=== PATIENT | male | born 1970 | race African-American/Black ===

== ENCOUNTER 2016-10-17 21:10 | Emergency (ER) | payer MEDICAID ==
[~2016-10-17] VITALS: Ht 177.8 cm; Wt 73.0 kg
[2016-10-17 21:46] VITALS: BP 125/79
== END 2016-10-18 | disposition left against medical advice (07) ==
LOC: ER 21:10
DX: S61.551A Open bite of right wrist, initial encounter (principal); W53.21XA Bitten by squirrel, initial encounter; Y93.9 Activity, unspecified; Y92.9 Unspecified place or not applicable; Z53.21 Procedure and treatment not carried out due to patient leaving prior to being seen by health care provider

== ENCOUNTER 2017-08-11 17:43 | Inpatient (IN) | payer MEDICAID ==
[~2017-08-11] VITALS: Ht 180.3 cm; Wt 74.4 kg
[2017-08-11] MEDS ORDERED: GABA-531 PO (17:55)
[2017-08-11] MEDS ORDERED: SODIUM CHLORIDE 0.9% 1000ML BAG (SEPSIS BOLUS) IV ONE (18:15)
[2017-08-11 18:50] LABS: HEMATOCRIT. 49.1 % (42.0-52.0); HEMOGLOBIN. 16.5 g/dL (14.0-18.0); MEAN CORPUSCULAR HEMOGLOBIN 30.3 pg (28.0-32.0); MEAN CORPUSCULAR VOLUME 90.4 fL (80.0-94.0); MEAN PLATELET VOLUME 8.5 fl (7.4-10.4); PLATELET 215 x1000/uL (130-400); RED BLOOD CELL COUNT 5.43 mill/uL (4.7-6.1); RED CELL DISTRIBUTION WIDTH 13.2 % (11.6-14.6)
[2017-08-11 18:54] LABS: CHLORIDE 104 mEq/L (98-107)
[2017-08-11 18:57] LABS: INR 1.1; PARTIAL THROMBOPLASTIN TIME 27.8 sec (23.4-31.0); PROTHROMBIN TIME 11.4 sec (9.4-11.6)
[2017-08-11 18:59] LABS: ETHANOL BLOOD < 10 mg/dL
[2017-08-11] MEDS ORDERED: VANCOMYCIN 1 G PREMIX 200 ML IV SCH (19:00)
[2017-08-11] MEDS ORDERED: ACETAMINOPHEN 650MG SUPP PR ONE (19:00)
[2017-08-11] MEDS ORDERED: PIPERACILLIN/TAZ 3.375G PREMIX 50 ML IV ONE (19:00)
[2017-08-11 19:36] LABS: PLATELET ESTIMATE NORMAL
[2017-08-11] MEDS ORDERED: ASPIRIN 300MG SUPP PR ONE (20:15)
[2017-08-12] VITALS (23 sets, daily range): BP systolic 106–149; BP diastolic 56–93
[2017-08-12] MEDS ORDERED: IPRATROPIUM/ALBUTEROL 0.5-3(2.5)MG/3ML NEB HHN PRN (02:30)
[2017-08-12] MEDS: IPRATROPIUM/ALBUTEROL 0.5-3(2.5)MG/3ML NEB HHN SCH ×5 (04:09→19:53)
[2017-08-12] MEDS: BACLOFEN 10MG TABLET PO SCH ×2 (06:10→14:00)
[2017-08-12] MEDS: GABAPENTIN 300MG CAPSULE PO SCH ×3 (09:00→17:00)
[2017-08-12] MEDS ORDERED: SODIUM CHLORIDE 0.9% 1,000 ML IV SCH (12:30)
[2017-08-12] MEDS: SODIUM CHLORIDE 0.9% 1,000 ML IV SCH ×2 (12:33→15:29)
[2017-08-12] MEDS ORDERED: VECURONIUM BROMIDE 10 MG/VIAL IV ONE (13:23)
[2017-08-12] MEDS ORDERED: ETOMIDATE 2MG/ML 10ML VIAL IV ONE (13:23)
[2017-08-12] MEDS ORDERED: NORMAL SALINE 0.9% 10 ML SYR ONE (13:23)
[2017-08-12] MEDS: PIPERACILLIN/TAZ 3.375G PREMIX 50 ML IV SCH ×2 (15:29→21:23)
[2017-08-12] MEDS ORDERED: ACETAMINOPHEN 650MG SUPP PR NR (16:15)
[2017-08-12 16:43] LABS: BG BASE EXCESS 1.2 mmol/L (-2.0-2.0); BG CARBOXYHEMOGLOBIN 0.9 % (0.5-1.5); BG DEOXYHEMOGLOBIN 1.4 % (0.0-5.0); BG FRACTION INSPIRED OXYGEN 100; BG HCO3 ACT 24.5 mmol/L (22.0-26.0); BG METHEMOGLOBIN 0.5 % (0.0-1.5); BG OXYGEN SATURATION 98.6 % (92.0-98.5); BG OXYHEMOGLOBIN 97.2 % (94.0-97.0); BG PCO2 35.2 mmHg (35.0-45.0); BG PH 7.461 (7.350-7.450); BG PO2 108.1 mmHg (75.0-100.0); BG SAMPLE SITE RIGHT RADIAL; BG TOTAL HEMOGLOBIN 15.6 g/dL (12.0-18.0); BG VENT MODE MASK - NRB
[2017-08-12] MEDS: VANCOMYCIN 1 G PREMIX 200 ML IV SCH ×2 (18:42→23:17)
[2017-08-12 18:54] LABS: BG BASE EXCESS -0.7 mmol/L (-2.0-2.0); BG CARBOXYHEMOGLOBIN 0.9 % (0.5-1.5); BG DEOXYHEMOGLOBIN 4.1 % (0.0-5.0); BG FRACTION INSPIRED OXYGEN 60; BG HCO3 ACT 22.9 mmol/L (22.0-26.0); BG METHEMOGLOBIN 0.4 % (0.0-1.5); BG OXYGEN SATURATION 95.8 % (92.0-98.5); BG OXYHEMOGLOBIN 94.6 % (94.0-97.0); BG PCO2 34.9 mmHg (35.0-45.0); BG PH 7.435 (7.350-7.450); BG PO2 73.1 mmHg (75.0-100.0); BG SAMPLE SITE RIGHT RADIAL; BG TIDAL VOLUME(mL) 600 mL; BG TOTAL HEMOGLOBIN 15.7 g/dL (12.0-18.0); BG VENT MODE VENT - A/C; BG VENT RATE 16 set
[2017-08-12 22:15] LABS: CLARITY URINE TURBID (CLEAR); COLOR URINE YELLOW (YELLOW); KETONES URINE TRACE (NEGATIVE); LEUKOCYTE ESTERASE URINE NEGATIVE (NEGATIVE); NITRITE URINE NEGATIVE (NEGATIVE); OCCULT BLOOD URINE 2+ (NEGATIVE); PROTEIN URINE 1+ (NEGATIVE); SPECIFIC GRAVITY URINE 1.018 (1.005-1.030); UROBILINOGEN URINE 0.2 E.U./dL (0.2-1.0)
[2017-08-12 22:36] LABS: *AMPHETAMINES SCREEN URINE NEGATIVE (NEGATIVE); *BARBITURATES SCREEN URINE NEGATIVE (NEGATIVE); *BENZODIAZEPINES SCREEN URINE NEGATIVE (NEGATIVE); *COCAINE SCREEN URINE NEGATIVE (NEGATIVE)
[2017-08-12 22:37] LABS: CANNABINOID URINE SCREEN NEGATIVE (NEGATIVE); METHADONE URINE SCREEN NEGATIVE (NEGATIVE); OPIATES URINE SCREEN NEGATIVE (NEGATIVE); PHENCYCLIDINE URINE SCREEN NEGATIVE (NEGATIVE)
[2017-08-13] VITALS (92 sets, daily range): BP systolic 90–137; BP diastolic 43–94
[2017-08-13] MEDS: IPRATROPIUM/ALBUTEROL 0.5-3(2.5)MG/3ML NEB HHN SCH ×6 (00:20→20:11)
[2017-08-13] MEDS: PIPERACILLIN/TAZ 3.375G PREMIX 50 ML IV SCH ×4 (02:53→20:34)
[2017-08-13] MEDS: ACETAMINOPHEN 650MG/20.3ML UDC PO PRN ×2 (02:58→16:48)
[2017-08-13 05:58] LABS: BASOPHILS % 0.1 % (0.0-2.0); HEMATOCRIT. 43.1 % (42.0-52.0); HEMOGLOBIN. 14.5 g/dL (14.0-18.0); LYMPHOCYTES % 11.3 % (20.0-50.0); MEAN CORPUSCULAR HEMOGLOBIN 30.1 pg (28.0-32.0); MEAN CORPUSCULAR VOLUME 89.3 fL (80.0-94.0); MEAN PLATELET VOLUME 8.6 fl (7.4-10.4); NEUTROPHILS % 83.6 % (40.0-76.0); PLATELET 203 x1000/uL (130-400); RED BLOOD CELL COUNT 4.83 mill/uL (4.7-6.1)
[2017-08-13 06:12] LABS: CHLORIDE 104 mEq/L (98-107)
[2017-08-13] MEDS: VANCOMYCIN 1 G PREMIX 200 ML IV SCH ×3 (06:30→22:51)
[2017-08-13 08:39] LABS: BG BASE EXCESS 3.3 mmol/L (-2.0-2.0); BG CARBOXYHEMOGLOBIN 0.3 % (0.5-1.5); BG DEOXYHEMOGLOBIN 1.1 % (0.0-5.0); BG FRACTION INSPIRED OXYGEN 50; BG METHEMOGLOBIN 0.3 % (0.0-1.5); BG OXYGEN SATURATION 98.9 % (92.0-98.5); BG OXYHEMOGLOBIN 98.3 % (94.0-97.0); BG PCO2 33.8 mmHg (35.0-45.0); BG PH 7.504 (7.350-7.450); BG PO2 151.2 mmHg (75.0-100.0); BG SAMPLE SITE RIGHT RADIAL; BG TIDAL VOLUME(mL) 600 mL; BG TOTAL HEMOGLOBIN 14.8 g/dL (12.0-18.0); BG VENT MODE VENT - A/C; BG VENT RATE 16 set
[2017-08-13] MEDS ORDERED: MORPHINE SULFATE 4 MG/ML CPJ (NOT FOR IM USE) IV PRN (09:00)
[2017-08-13] MEDS ORDERED: LORAZEPAM 2MG/ML CPJ IV PRN (09:15)
[2017-08-13] MEDS: PROPOFOL 10MG/ML 100ML 100 ML IV PRN ×2 (09:42→22:51)
[2017-08-13] MEDS: PANTOPRAZOLE SODIUM 40 MG/VIAL IV SCH (09:43)
[2017-08-13] MEDS: GABAPENTIN 300MG CAPSULE PO SCH ×3 (09:43→16:48)
[2017-08-13] MEDS: ENOXAPARIN 40MG/0.4ML SYR SUBCUT SCH (09:43)
[2017-08-13] MEDS: POTASSIUM CHLORIDE 20MEQ/PACKET PO SCH ×3 (09:44→16:47)
[2017-08-13] MEDS: BACLOFEN 10MG TABLET PO SCH ×2 (12:49→22:51)
[2017-08-13] MEDS: SODIUM CHLORIDE 0.9% 1,000 ML IV SCH ×2 (13:01→22:52)
[2017-08-13] MEDS: HYDROCORTISONE ACETATE 25MG SUPP PR SCH (20:34)
[2017-08-14] VITALS (46 sets, daily range): BP systolic 95–172; BP diastolic 54–106
[2017-08-14] MEDS: IPRATROPIUM/ALBUTEROL 0.5-3(2.5)MG/3ML NEB HHN SCH ×6 (00:15→20:06)
[2017-08-14] MEDS: PIPERACILLIN/TAZ 3.375G PREMIX 50 ML IV SCH ×4 (04:09→22:06)
[2017-08-14] MEDS: ACETAMINOPHEN 650MG/20.3ML UDC PO PRN ×3 (04:13→19:47)
[2017-08-14] MEDS: BACLOFEN 10MG TABLET PO SCH ×3 (05:19→22:06)
[2017-08-14 05:31] LABS: HEMATOCRIT. 41.1 % (42.0-52.0); MEAN CORPUSCULAR HEMOGLOBIN 30.7 pg (28.0-32.0); MEAN CORPUSCULAR VOLUME 90.2 fL (80.0-94.0); MEAN PLATELET VOLUME 9.4 fl (7.4-10.4); PLATELET 184 x1000/uL (130-400); RED BLOOD CELL COUNT 4.55 mill/uL (4.7-6.1); RED CELL DISTRIBUTION WIDTH 13.2 % (11.6-14.6)
[2017-08-14 05:45] LABS: CHLORIDE 107 mEq/L (98-107)
[2017-08-14] MEDS: VANCOMYCIN 1 G PREMIX 200 ML IV SCH ×3 (06:50→23:47)
[2017-08-14] MEDS: PANTOPRAZOLE SODIUM 40 MG/VIAL IV SCH (08:21)
[2017-08-14] MEDS: ENOXAPARIN 40MG/0.4ML SYR SUBCUT SCH (08:22)
[2017-08-14] MEDS: HYDROCORTISONE ACETATE 25MG SUPP PR SCH ×2 (08:22→22:06)
[2017-08-14] MEDS: GABAPENTIN 300MG CAPSULE PO SCH ×3 (08:22→16:50)
[2017-08-14 08:44] LABS: BG BASE EXCESS 3.8 mmol/L (-2.0-2.0); BG CARBOXYHEMOGLOBIN 0.1 % (0.5-1.5); BG FRACTION INSPIRED OXYGEN 40; BG HCO3 ACT 27.8 mmol/L (22.0-26.0); BG METHEMOGLOBIN 0.1 % (0.0-1.5); BG OXYHEMOGLOBIN 97.8 % (94.0-97.0); BG PCO2 39.6 mmHg (35.0-45.0); BG PH 7.464 (7.350-7.450); BG PO2 102.4 mmHg (75.0-100.0); BG SAMPLE SITE RIGHT RADIAL; BG TIDAL VOLUME(mL) 600 mL; BG TOTAL HEMOGLOBIN 13.2 g/dL (12.0-18.0); BG VENT MODE VENT - A/C; BG VENT RATE 12 set
[2017-08-14] MEDS: PROPOFOL 10MG/ML 100ML 100 ML IV PRN (08:50)
[2017-08-14 09:22] LABS: PLATELET ESTIMATE NORMAL
[2017-08-14] MEDS ORDERED: POTASSIUM CHLORIDE 20MEQ/PACKET PO NR (11:00)
[2017-08-14] MEDS ORDERED: GADOBENATE DIMEGLUMINE 529 MG/ML 10ML IV ONE (11:43)
[2017-08-14 12:28] LABS: BG BASE EXCESS 3.7 mmol/L (-2.0-2.0); BG CARBOXYHEMOGLOBIN 0.6 % (0.5-1.5); BG DEOXYHEMOGLOBIN 1.7 % (0.0-5.0); BG FRACTION INSPIRED OXYGEN 40; BG HCO3 ACT 27.9 mmol/L (22.0-26.0); BG METHEMOGLOBIN 0.4 % (0.0-1.5); BG OXYGEN SATURATION 98.3 % (92.0-98.5); BG OXYHEMOGLOBIN 97.3 % (94.0-97.0); BG PCO2 40.8 mmHg (35.0-45.0); BG PH 7.453 (7.350-7.450); BG PRESSURE SUPPORT 8; BG SAMPLE SITE RIGHT RADIAL; BG TOTAL HEMOGLOBIN 13.8 g/dL (12.0-18.0); BG VENT MODE VENT - CPAP
[2017-08-14] MEDS: SODIUM CHLORIDE 0.9% 1,000 ML IV SCH (15:27)
[2017-08-15] VITALS (27 sets, daily range): BP systolic 107–125; BP diastolic 61–75
[2017-08-15] MEDS: IPRATROPIUM/ALBUTEROL 0.5-3(2.5)MG/3ML NEB HHN SCH ×5 (00:04→20:48)
[2017-08-15] MEDS: PIPERACILLIN/TAZ 3.375G PREMIX 50 ML IV SCH ×4 (03:00→21:21)
[2017-08-15 05:59] LABS: BASOPHILS % 0.2 % (0.0-2.0); CHLORIDE 108 mEq/L (98-107); EOSINOPHILS % 0.1 % (0.0-5.0); HEMATOCRIT. 38.4 % (42.0-52.0); HEMOGLOBIN. 13.1 g/dL (14.0-18.0); LYMPHOCYTES % 7.4 % (20.0-50.0); MEAN CORPUSCULAR HEMOGLOBIN 30.4 pg (28.0-32.0); MEAN CORPUSCULAR VOLUME 89.4 fL (80.0-94.0); MEAN PLATELET VOLUME 8.6 fl (7.4-10.4); MONOCYTES % 5.9 % (2.0-8.0); NEUTROPHILS % 86.4 % (40.0-76.0); PLATELET 242 x1000/uL (130-400); RED CELL DISTRIBUTION WIDTH 13.5 % (11.6-14.6)
[2017-08-15 06:16] LABS: VANCOMYCIN TROUGH 18.6 ug/mL (5.0-10.0)
[2017-08-15] MEDS: BACLOFEN 10MG TABLET PO SCH ×3 (06:35→21:21)
[2017-08-15] MEDS: VANCOMYCIN 1 G PREMIX 200 ML IV SCH (06:36)
[2017-08-15] MEDS: SODIUM CHLORIDE 0.9% 1,000 ML IV SCH ×2 (06:36→21:21)
[2017-08-15] MEDS: ACETAMINOPHEN 650MG/20.3ML UDC PO PRN ×2 (07:21→14:40)
[2017-08-15 08:54] LABS: BG BASE EXCESS -0.9 mmol/L (-2.0-2.0); BG DEOXYHEMOGLOBIN 3.5 % (0.0-5.0); BG FRACTION INSPIRED OXYGEN 28; BG METHEMOGLOBIN 0.3 % (0.0-1.5); BG OXYGEN SATURATION 96.5 % (92.0-98.5); BG OXYHEMOGLOBIN 95.2 % (94.0-97.0); BG PCO2 31.4 mmHg (35.0-45.0); BG PH 7.464 (7.350-7.450); BG PO2 77.2 mmHg (75.0-100.0); BG SAMPLE SITE RIGHT RADIAL; BG VENT MODE NASAL CANNULA
[2017-08-15] MEDS: ENOXAPARIN 40MG/0.4ML SYR SUBCUT SCH (09:12)
[2017-08-15] MEDS: GABAPENTIN 300MG CAPSULE PO SCH ×3 (09:12→17:46)
[2017-08-15] MEDS: PANTOPRAZOLE SODIUM 40 MG/VIAL IV SCH (09:12)
[2017-08-15] MEDS: HYDROCORTISONE ACETATE 25MG SUPP PR SCH ×2 (09:12→21:21)
[2017-08-15] MEDS: KCL 20MEQ/100ML PREMIX 100 ML IV SCH ×2 (12:19→14:19)
[2017-08-15] MEDS: VANCOMYCIN 1250MG in DEXTROSE 5% WATER 250ML IV SCH ×2 (13:29→22:06)
[2017-08-16] VITALS (12 sets, daily range): BP systolic 111–137; BP diastolic 68–80
[2017-08-16] MEDS: IPRATROPIUM/ALBUTEROL 0.5-3(2.5)MG/3ML NEB HHN SCH ×7 (00:51→21:15)
[2017-08-16] MEDS: PIPERACILLIN/TAZ 3.375G PREMIX 50 ML IV SCH ×4 (03:10→21:20)
[2017-08-16] MEDS: VANCOMYCIN 1250MG in DEXTROSE 5% WATER 250ML IV SCH ×2 (05:41→13:50)
[2017-08-16] MEDS: BACLOFEN 10MG TABLET PO SCH ×3 (05:42→21:35)
[2017-08-16 06:58] LABS: BASOPHILS % 0.4 % (0.0-2.0); EOSINOPHILS % 0.8 % (0.0-5.0); HEMATOCRIT. 36.6 % (42.0-52.0); HEMOGLOBIN. 12.4 g/dL (14.0-18.0); LYMPHOCYTES % 8.3 % (20.0-50.0); MEAN CORPUSCULAR HEMOGLOBIN 30.4 pg (28.0-32.0); MEAN CORPUSCULAR VOLUME 89.6 fL (80.0-94.0); MONOCYTES % 8.4 % (2.0-8.0); NEUTROPHILS % 82.1 % (40.0-76.0); PLATELET 304 x1000/uL (130-400); RED BLOOD CELL COUNT 4.09 mill/uL (4.7-6.1); RED CELL DISTRIBUTION WIDTH 13.5 % (11.6-14.6)
[2017-08-16 07:12] LABS: CHLORIDE 110 mEq/L (98-107)
[2017-08-16] MEDS ORDERED: POTASSIUM CHLORIDE 20MEQ TABLET SR PO SCH (09:15)
[2017-08-16] MEDS: SODIUM CHLORIDE 0.9% 1,000 ML IV SCH (09:53)
[2017-08-16] MEDS: PANTOPRAZOLE SODIUM 40 MG/VIAL IV SCH (10:01)
[2017-08-16] MEDS: GABAPENTIN 300MG CAPSULE PO SCH ×3 (10:01→17:51)
[2017-08-16] MEDS: ENOXAPARIN 40MG/0.4ML SYR SUBCUT SCH (10:03)
[2017-08-16] MEDS: HYDROCORTISONE ACETATE 25MG SUPP PR SCH ×2 (13:49→21:40)
[2017-08-16] MEDS: METOPROLOL TARTRATE 25MG TABLET PO SCH (21:00)
[2017-08-16] MEDS: VANCOMYCIN 1 G PREMIX 200 ML IV SCH (21:54)
[2017-08-17] VITALS (12 sets, daily range): BP systolic 97–142; BP diastolic 64–82
[2017-08-17] MEDS: IPRATROPIUM/ALBUTEROL 0.5-3(2.5)MG/3ML NEB HHN SCH ×5 (01:20→20:22)
[2017-08-17] MEDS: PIPERACILLIN/TAZ 3.375G PREMIX 50 ML IV SCH ×4 (03:14→20:32)
[2017-08-17] MEDS: VANCOMYCIN 1 G PREMIX 200 ML IV SCH ×3 (06:18→21:55)
[2017-08-17] MEDS: BACLOFEN 10MG TABLET PO SCH ×3 (06:19→22:11)
[2017-08-17 07:29] LABS: BASOPHILS % 0.5 % (0.0-2.0); EOSINOPHILS % 2.2 % (0.0-5.0); HEMATOCRIT. 37.9 % (42.0-52.0); LYMPHOCYTES % 11.6 % (20.0-50.0); MEAN CORPUSCULAR HEMOGLOBIN 30.8 pg (28.0-32.0); MEAN CORPUSCULAR VOLUME 89.5 fL (80.0-94.0); MEAN PLATELET VOLUME 8.2 fl (7.4-10.4); NEUTROPHILS % 74.7 % (40.0-76.0); PLATELET 393 x1000/uL (130-400); RED BLOOD CELL COUNT 4.23 mill/uL (4.7-6.1); RED CELL DISTRIBUTION WIDTH 13.5 % (11.6-14.6)
[2017-08-17 08:25] LABS: CHLORIDE 113 mEq/L (98-107)
[2017-08-17] MEDS: GABAPENTIN 300MG CAPSULE PO SCH ×3 (08:56→18:40)
[2017-08-17] MEDS: FAMOTIDINE 20MG/2ML VIAL IV SCH ×2 (08:56→20:38)
[2017-08-17] MEDS: METOPROLOL TARTRATE 25MG TABLET PO SCH ×2 (08:57→20:39)
[2017-08-17] MEDS: HYDROCORTISONE ACETATE 25MG SUPP PR SCH ×2 (08:57→20:45)
[2017-08-17] MEDS: ENOXAPARIN 40MG/0.4ML SYR SUBCUT SCH (08:57)
[2017-08-18] VITALS (12 sets, daily range): BP systolic 105–133; BP diastolic 56–90
[2017-08-18] MEDS: PIPERACILLIN/TAZ 3.375G PREMIX 50 ML IV SCH ×4 (03:36→22:19)
[2017-08-18] MEDS: IPRATROPIUM/ALBUTEROL 0.5-3(2.5)MG/3ML NEB HHN SCH ×5 (03:51→21:22)
[2017-08-18] MEDS: BACLOFEN 10MG TABLET PO SCH ×3 (06:05→22:16)
[2017-08-18] MEDS: VANCOMYCIN 1 G PREMIX 200 ML IV SCH (07:47)
[2017-08-18] MEDS: FAMOTIDINE 20MG/2ML VIAL IV SCH ×2 (09:42→22:18)
[2017-08-18] MEDS: HYDROCORTISONE ACETATE 25MG SUPP PR SCH ×2 (09:43→22:18)
[2017-08-18] MEDS: METOPROLOL TARTRATE 25MG TABLET PO SCH ×2 (09:43→22:18)
[2017-08-18] MEDS: GABAPENTIN 300MG CAPSULE PO SCH ×3 (09:43→17:39)
[2017-08-18] MEDS: ENOXAPARIN 40MG/0.4ML SYR SUBCUT SCH (09:44)
[2017-08-18 12:13] LABS: EOSINOPHILS % 3.5 % (0.0-5.0); HEMATOCRIT. 40.4 % (42.0-52.0); HEMOGLOBIN. 13.4 g/dL (14.0-18.0); LYMPHOCYTES % 13.5 % (20.0-50.0); MEAN CORPUSCULAR HEMOGLOBIN 30.1 pg (28.0-32.0); MEAN PLATELET VOLUME 8.2 fl (7.4-10.4); PLATELET 482 x1000/uL (130-400); RED BLOOD CELL COUNT 4.44 mill/uL (4.7-6.1); RED CELL DISTRIBUTION WIDTH 13.9 % (11.6-14.6)
[2017-08-18 12:20] LABS: CHLORIDE 112 mEq/L (98-107)
[2017-08-18 16:40] LABS: HEPATITIS B SURFACE ANTIGEN NEGATIVE
[2017-08-18 17:09] LABS: HEPATITIS B CORE AB IGM NEGATIVE
[2017-08-18 17:10] LABS: HEPATITIS A AB IGM NEGATIVE (NEGATIVE)
[2017-08-18] MEDS ORDERED: VANCOMYCIN 1250MG in DEXTROSE 5% WATER 250ML IV SCH (20:00)
[2017-08-19] VITALS (16 sets, daily range): BP systolic 102–148; BP diastolic 69–83
[2017-08-19] MEDS: IPRATROPIUM/ALBUTEROL 0.5-3(2.5)MG/3ML NEB HHN SCH ×6 (01:05→20:46)
[2017-08-19] MEDS: PIPERACILLIN/TAZ 3.375G PREMIX 50 ML IV SCH ×3 (04:11→15:38)
[2017-08-19] MEDS: BACLOFEN 10MG TABLET PO SCH ×3 (05:33→21:40)
[2017-08-19] MEDS: FAMOTIDINE 20MG/2ML VIAL IV SCH ×2 (09:25→21:40)
[2017-08-19] MEDS: HYDROCORTISONE ACETATE 25MG SUPP PR SCH ×2 (09:27→21:40)
[2017-08-19] MEDS: ENOXAPARIN 40MG/0.4ML SYR SUBCUT SCH (09:27)
[2017-08-19] MEDS: METOPROLOL TARTRATE 25MG TABLET PO SCH ×2 (09:27→21:40)
[2017-08-19] MEDS: GABAPENTIN 300MG CAPSULE PO SCH ×3 (09:27→16:47)
[2017-08-19 23:33] LABS: BASOPHILS % 0.5 % (0.0-2.0); EOSINOPHILS % 2.6 % (0.0-5.0); HEMATOCRIT. 38.7 % (42.0-52.0); HEMOGLOBIN. 12.9 g/dL (14.0-18.0); LYMPHOCYTES % 12.7 % (20.0-50.0); MEAN CORPUSCULAR HEMOGLOBIN 30.3 pg (28.0-32.0); MEAN CORPUSCULAR VOLUME 90.7 fL (80.0-94.0); MEAN PLATELET VOLUME 7.7 fl (7.4-10.4); MONOCYTES % 14.2 % (2.0-8.0); PLATELET 620 x1000/uL (130-400); RED BLOOD CELL COUNT 4.27 mill/uL (4.7-6.1)
[2017-08-19 23:42] LABS: CHLORIDE 109 mEq/L (98-107)
[2017-08-20] VITALS (12 sets, daily range): BP systolic 92–144; BP diastolic 66–83
[2017-08-20] MEDS: IPRATROPIUM/ALBUTEROL 0.5-3(2.5)MG/3ML NEB HHN SCH ×6 (00:28→20:12)
[2017-08-20] MEDS: BACLOFEN 10MG TABLET PO SCH ×3 (06:35→21:48)
[2017-08-20] MEDS: METOPROLOL TARTRATE 25MG TABLET PO SCH ×2 (09:23→21:49)
[2017-08-20] MEDS: FAMOTIDINE 20MG/2ML VIAL IV SCH ×2 (09:23→21:48)
[2017-08-20] MEDS: HYDROCORTISONE ACETATE 25MG SUPP PR SCH ×2 (09:23→21:48)
[2017-08-20] MEDS: GABAPENTIN 300MG CAPSULE PO SCH ×3 (09:23→17:40)
[2017-08-20] MEDS: ENOXAPARIN 40MG/0.4ML SYR SUBCUT SCH (09:24)
[2017-08-20] MEDS: ACETYLCYSTEINE 100MG/ML 10% VIAL 4ML INH SCH (12:43)
[2017-08-20 12:58] LABS: HEMATOCRIT. 42.5 % (42.0-52.0); HEMOGLOBIN. 14.2 g/dL (14.0-18.0); MEAN CORPUSCULAR HEMOGLOBIN 30.4 pg (28.0-32.0); MEAN CORPUSCULAR VOLUME 90.5 fL (80.0-94.0); MEAN PLATELET VOLUME 7.7 fl (7.4-10.4); PLATELET 624 x1000/uL (130-400); RED BLOOD CELL COUNT 4.69 mill/uL (4.7-6.1); RED CELL DISTRIBUTION WIDTH 13.9 % (11.6-14.6)
[2017-08-20 13:13] LABS: CHLORIDE 107 mEq/L (98-107)
[2017-08-20 16:22] LABS: PLATELET ESTIMATE INCREASED
[2017-08-21] VITALS (13 sets, daily range): BP systolic 108–128; BP diastolic 27–106
[2017-08-21] MEDS: ACETYLCYSTEINE 100MG/ML 10% VIAL 4ML INH SCH ×3 (01:59→15:18)
[2017-08-21] MEDS: IPRATROPIUM/ALBUTEROL 0.5-3(2.5)MG/3ML NEB HHN SCH ×3 (01:59→08:20)
[2017-08-21] MEDS: BACLOFEN 10MG TABLET PO SCH ×3 (06:09→20:59)
[2017-08-21] MEDS: HYDROCORTISONE ACETATE 25MG SUPP PR SCH (09:00)
[2017-08-21] MEDS: FAMOTIDINE 20MG/2ML VIAL IV SCH ×2 (09:15→20:58)
[2017-08-21] MEDS: GABAPENTIN 300MG CAPSULE PO SCH ×3 (09:15→17:17)
[2017-08-21] MEDS: METOPROLOL TARTRATE 25MG TABLET PO SCH ×2 (09:15→20:59)
[2017-08-21] MEDS: ENOXAPARIN 40MG/0.4ML SYR SUBCUT SCH (09:17)
[2017-08-21] MEDS ORDERED: ALBUTEROL (0.5%) 2.5MG/0.5ML NEB HHN PRN (10:00)
[2017-08-21] MEDS ORDERED: LEVO500T2 MT (10:48)
[2017-08-21] MEDS ORDERED: BACL-141 PO (10:48)
[2017-08-21] MEDS ORDERED: METO25TA6 PO (10:48)
[2017-08-21] MEDS ORDERED: ALBU2.5V13 HHN (10:48)
[2017-08-21] MEDS ORDERED: GABA-531 PO (10:48)
[2017-08-21 12:34] LABS: HEMATOCRIT. 40.5 % (42.0-52.0); HEMOGLOBIN. 13.7 g/dL (14.0-18.0); MEAN CORPUSCULAR HEMOGLOBIN 30.5 pg (28.0-32.0); MEAN CORPUSCULAR VOLUME 90.3 fL (80.0-94.0); MEAN PLATELET VOLUME 7.7 fl (7.4-10.4); PLATELET 669 x1000/uL (130-400); RED BLOOD CELL COUNT 4.48 mill/uL (4.7-6.1); RED CELL DISTRIBUTION WIDTH 13.7 % (11.6-14.6)
[2017-08-21] MEDS: ALBUTEROL (0.083%) 2.5MG/3ML NEB HHN SCH ×3 (12:53→20:50)
[2017-08-21 13:51] LABS: PLATELET ESTIMATE INCREASED
[2017-08-21] MEDS ORDERED: ALBUTEROL (0.083%) 2.5MG/3ML NEB HHN PRN (15:00)
== END 2017-08-21 22:20 | disposition home health service (06) | DRG 720 ==
LOC: ER 18:14 → 5WST 21:30 → ENRESERV 22:11 → CANRESERV 22:11 → ENRESERV 22:59 → 5WST 08-12 00:15 → CVICU 08-12 17:34 → 5EST 08-15 23:00
PROVIDERS: ADMIT Family Medicine; ATTEND Family Medicine
PROC: 5A1945Z Respiratory Ventilation, 24-96 Consecutive Hours (ICD-10-PCS; principal; 2017-08-12)
PROC: 0BH17EZ Insertion of Endotracheal Airway into Trachea, Via Natural or Artificial Opening (ICD-10-PCS; 2017-08-12)
PROC: 4A00X4Z Measurement of Central Nervous Electrical Activity, External Approach (ICD-10-PCS; 2017-08-14)
DX: A41.9 Sepsis, unspecified organism (principal); J96.00 Acute respiratory failure, unspecified whether with hypoxia or hypercapnia; J69.0 Pneumonitis due to inhalation of food and vomit; G93.41 Metabolic encephalopathy; G82.50 Quadriplegia, unspecified; E46 Unspecified protein-calorie malnutrition; R13.10 Dysphagia, unspecified; G35 Multiple sclerosis; E87.0 Hyperosmolality and hypernatremia; G90.8 Other disorders of autonomic nervous system; D64.9 Anemia, unspecified; E87.6 Hypokalemia; I10 Essential (primary) hypertension; G62.9 Polyneuropathy, unspecified; R74.0 Nonspecific elevation of levels of transaminase and lactic acid dehydrogenase [LDH]; Z99.3 Dependence on wheelchair; Z79.899 Other long term (current) drug therapy; Z68.22 Body mass index [BMI] 22.0-22.9, adult
CPT/HCPCS: 36415; 36600; 70450; 70551; 70552; 71045; 71250; 74176; 76700; 80048; 80053; 80076; 80202; 80305; 81003; 82150; 82375; 82805; 82962; 83605; 83735; 84145; 84478; 84484; 85025; 85610; 85730; 86705; 86709; 86803; 86850; 86900; 87040; 87070; 87086; 87340; 92610; 93005; 93306; 94002; 94003; 94640; 94667; 97110; 97161; 97163; 97166; 97530; A4216; A9577; C9113; G0482; J1650; J2543; J2704; J3370; J3480; J3490; J7030; J7050; J7060; J7608; J7611; J7620

== ENCOUNTER 2018-04-20 19:24 | Inpatient (IN) | payer MEDICAID ==
[~2018-04-20] VITALS: Ht 175.3 cm; Wt 72.6 kg
[~2018-04-20 19:24] MED LIST: ALBU2.5V13 HHN; BACL-141 PO; GABA-531 PO; LEVO500T2 MT; METO25TA6 PO
[2018-04-20] MEDS ORDERED: SODIUM CHLORIDE 0.9% IRRIG SOLUTION 1000ML IR ONE (22:00)
[2018-04-20] MEDS ORDERED: SODIUM CHLORIDE 0.9% 1,000 ML IR NR (22:15)
[2018-04-20 23:11] LABS: BASOPHILS % 0.1 % (0.0-2.0); HEMATOCRIT. 49.2 % (42.0-52.0); HEMOGLOBIN. 16.3 g/dL (14.0-18.0); LYMPHOCYTES % 9.2 % (20.0-50.0); MEAN CORPUSCULAR HEMOGLOBIN 30.6 pg (28.0-32.0); MEAN CORPUSCULAR VOLUME 92.2 fL (80.0-94.0); MEAN PLATELET VOLUME 8.6 fl (7.4-10.4); MONOCYTES % 11.7 % (2.0-8.0); PLATELET 232 x1000/uL (130-400); RED BLOOD CELL COUNT 5.33 mill/uL (4.7-6.1); RED CELL DISTRIBUTION WIDTH 14.8 % (11.6-14.6)
[2018-04-20 23:18] LABS: CHLORIDE 106 mEq/L (98-107)
[2018-04-20 23:46] LABS: CLARITY URINE CLOUDY (CLEAR); COLOR URINE YELLOW (YELLOW); KETONES URINE NEGATIVE (NEGATIVE); LEUKOCYTE ESTERASE URINE TRACE (NEGATIVE); NITRITE URINE POSITIVE (NEGATIVE); OCCULT BLOOD URINE 3+ (NEGATIVE); PROTEIN URINE 1+ (NEGATIVE); SPECIFIC GRAVITY URINE 1.023 (1.005-1.030); UROBILINOGEN URINE 0.2 E.U./dL (0.2-1.0)
[2018-04-21] MEDS ORDERED: CEFTRIAXONE 1 G PREMIX 50 ML IV ONE (00:15)
[2018-04-21] MEDS ORDERED: SODIUM CHLORIDE 0.9% IRRIG SOLUTION 1000ML IR ONE (00:15)
[2018-04-21] MEDS ORDERED: SODIUM CHLORIDE 0.9% 1,000 ML IV NR (01:15)
[2018-04-21] MEDS: SODIUM CHLORIDE 0.9% 1,000 ML IV SCH (08:31)
[2018-04-21] MEDS ORDERED: ACETAMINOPHEN 325MG TABLET PO PRN (08:45)
[2018-04-21] MEDS ORDERED: IPRATROPIUM/ALBUTEROL 0.5-3(2.5)MG/3ML NEB INH PRN (08:45)
[2018-04-21] MEDS ORDERED: MAGNESIUM/ALUMINUM HYDROXIDE/SIMETHICONE 30ML UDC PO PRN (08:45)
[2018-04-21] MEDS ORDERED: DIPHENHYDRAMINE 50MG/ML VIAL IV PRN (08:45)
[2018-04-21] MEDS ORDERED: HYDROCODONE/ACETAMINOPHEN 5/325MG TABLET PO PRN (08:45)
[2018-04-21] MEDS ORDERED: GUAIFENESIN 200MG/10ML SUGAR FREE UDC PO PRN (08:45)
[2018-04-21] MEDS ORDERED: CLONIDINE 0.1MG TABLET PO PRN (08:45)
[2018-04-21] MEDS ORDERED: DOCUSATE SODIUM 100MG CAPSULE PO PRN (08:45)
[2018-04-21] MEDS ORDERED: ONDANSETRON HCL 4MG/2ML INJ IV PRN (08:45)
[2018-04-21 09:00] VITALS: BP 100/61
[2018-04-21 09:57] LABS: PHOSPHORUS 3.1 mg/dL (2.5-4.9)
[2018-04-21 10:09] VITALS: BP 100/61
[2018-04-21] MEDS: ENOXAPARIN 40MG/0.4ML SYR SUBCUT SCH (12:04)
[2018-04-21] MEDS: METOPROLOL TARTRATE 25MG TABLET PO SCH (14:31)
[2018-04-21] MEDS: GABAPENTIN 300MG CAPSULE PO SCH ×2 (15:09→21:18)
[2018-04-21] MEDS: BACLOFEN 10MG TABLET PO SCH ×2 (15:09→21:18)
[2018-04-21 16:00] VITALS: BP 123/80
[2018-04-21 16:21] LABS: HEPATITIS B SURFACE ANTIGEN NEGATIVE
[2018-04-21] MEDS ORDERED: SODIUM CHLORIDE 0.9% 500 ML IV NR (16:31)
[2018-04-21 16:50] LABS: HEPATITIS A AB IGM NEGATIVE (NEGATIVE)
[2018-04-21] MEDS ORDERED: SODIUM CHLORIDE 0.9% 500 ML IV SCH (16:50)
[2018-04-21 19:59] LABS: CREATINE KINASE 5170 IU/L (39-308)
[2018-04-21 20:00] VITALS: BP 101/68
[2018-04-22] VITALS: BP 103/66
[2018-04-22] MEDS ORDERED: CEFTRIAXONE 1 G PREMIX 50 ML IV SCH (01:00)
[2018-04-22] MEDS: CEFTRIAXONE 1,000 MG in DEXTROSE 5% WATER 50 ML IV SCH (01:22)
[2018-04-22] MEDS: SODIUM CHLORIDE 0.9% 1,000 ML IV SCH (01:22)
[2018-04-22 04:00] VITALS: BP 114/66
[2018-04-22 06:17] LABS: BASOPHILS % 0.3 % (0.0-2.0); EOSINOPHILS % 0.4 % (0.0-5.0); HEMATOCRIT. 44.7 % (42.0-52.0); HEMOGLOBIN. 14.8 g/dL (14.0-18.0); LYMPHOCYTES % 13.9 % (20.0-50.0); MEAN CORPUSCULAR HEMOGLOBIN 30.9 pg (28.0-32.0); MEAN PLATELET VOLUME 8.8 fl (7.4-10.4); MONOCYTES % 12.6 % (2.0-8.0); NEUTROPHILS % 72.8 % (40.0-76.0); PLATELET 219 x1000/uL (130-400); RED BLOOD CELL COUNT 4.81 mill/uL (4.7-6.1); RED CELL DISTRIBUTION WIDTH 14.8 % (11.6-14.6)
[2018-04-22] MEDS: BACLOFEN 10MG TABLET PO SCH ×3 (06:28→21:11)
[2018-04-22] MEDS: GABAPENTIN 300MG CAPSULE PO SCH ×3 (06:28→21:11)
[2018-04-22 06:29] LABS: CHLORIDE 112 mEq/L (98-107)
[2018-04-22 06:37] LABS: LDL CHOLESTEROL 60 mg/dL (5-100)
[2018-04-22 06:39] LABS: HDL CHOLESTEROL 58 mg/dL (40-59)
[2018-04-22 06:53] LABS: CREATINE KINASE 3949 IU/L (39-308)
[2018-04-22 08:00] VITALS: BP 111/80
[2018-04-22] MEDS: ENOXAPARIN 40MG/0.4ML SYR SUBCUT SCH (09:38)
[2018-04-22] MEDS: METOPROLOL TARTRATE 25MG TABLET PO SCH ×2 (09:39→21:00)
[2018-04-22] MEDS: SODIUM CHLORIDE 0.45% 1,000 ML IV SCH (11:56)
[2018-04-22 12:00] VITALS: BP 120/68
[2018-04-22 16:00] VITALS: BP 122/68
[2018-04-22 20:29] VITALS: BP 105/69
[2018-04-22] MEDS ORDERED: DEXTROSE 50% WATER 50ML SYRINGE IV PRN (23:15)
[2018-04-23] VITALS: BP 100/62
[2018-04-23] MEDS: CEFTRIAXONE 1,000 MG in DEXTROSE 5% WATER 50 ML IV SCH (00:05)
[2018-04-23 04:00] VITALS: BP 99/58
[2018-04-23] MEDS: GABAPENTIN 300MG CAPSULE PO SCH ×2 (05:11→15:23)
[2018-04-23] MEDS: SODIUM CHLORIDE 0.45% 1,000 ML IV SCH (05:11)
[2018-04-23] MEDS: BACLOFEN 10MG TABLET PO SCH ×2 (05:11→15:23)
[2018-04-23 05:46] LABS: BASOPHILS % 0.5 % (0.0-2.0); EOSINOPHILS % 0.8 % (0.0-5.0); HEMATOCRIT. 41.1 % (42.0-52.0); HEMOGLOBIN. 13.7 g/dL (14.0-18.0); LYMPHOCYTES % 17.7 % (20.0-50.0); MEAN CORPUSCULAR HEMOGLOBIN 30.8 pg (28.0-32.0); MEAN CORPUSCULAR VOLUME 91.9 fL (80.0-94.0); MEAN PLATELET VOLUME 8.5 fl (7.4-10.4); MONOCYTES % 12.1 % (2.0-8.0); NEUTROPHILS % 68.9 % (40.0-76.0); PLATELET 268 x1000/uL (130-400); RED BLOOD CELL COUNT 4.47 mill/uL (4.7-6.1); RED CELL DISTRIBUTION WIDTH 14.6 % (11.6-14.6)
[2018-04-23] MEDS: BLOOD SUGAR DIAGNOSTIC STRIP TEST SCH ×4 (06:00→21:00)
[2018-04-23] MEDS: INSULIN LISPRO 100 UNITS/ML SUBCUT SCH ×4 (06:00→21:00)
[2018-04-23 06:01] LABS: CHLORIDE 110 mEq/L (98-107)
[2018-04-23 06:29] LABS: CREATINE KINASE 2297 IU/L (39-308)
[2018-04-23 08:00] VITALS: BP 96/64
[2018-04-23] MEDS: METOPROLOL TARTRATE 25MG TABLET PO SCH ×2 (09:56→21:00)
[2018-04-23] MEDS: ENOXAPARIN 40MG/0.4ML SYR SUBCUT SCH (09:56)
[2018-04-23] MEDS: SILVER SULFADIAZINE 1% CREAM 50GM TOP SCH (09:57)
[2018-04-23 12:00] VITALS: BP 98/60
[2018-04-23] MEDS ORDERED: POTASSIUM CHLORIDE 20MEQ TABLET SR PO NR (14:45)
[2018-04-23 16:00] VITALS: BP 104/68
[2018-04-23] MEDS ORDERED: ERYTHROMYCIN BASE 0.5% OPHTH OINT 3.5GM LEFTEYE SCH (17:00)
[2018-04-23] MEDS ORDERED: IOHEXOL-350 100 ML BOTTLE ONE (18:26)
[2018-04-23] MEDS: ERYTHROMYCIN BASE 0.5% OPHTH OINT 3.5GM BOTHEYE SCH ×2 (18:30→22:35)
[2018-04-23 20:00] VITALS: BP 103/68
[2018-04-23 20:29] LABS: T4 FREE 1.21 ng/dL (0.76-1.46)
[2018-04-23 21:58] LABS: FOLIC ACID (FOLATE) SERUM 10.8 ng/mL (>5.38)
[2018-04-23] MEDS: NEOMY SULF/BACITRAC ZN/POLY OINT 28GM TOP SCH (22:36)
[2018-04-24] VITALS: BP 99/64
[2018-04-24] MEDS: SODIUM CHLORIDE 0.45% 1,000 ML IV SCH ×3 (00:37→21:17)
[2018-04-24] MEDS: CEFTRIAXONE 1,000 MG in DEXTROSE 5% WATER 50 ML IV SCH (00:37)
[2018-04-24 04:00] VITALS: BP 104/73
[2018-04-24 04:18] LABS: HIV SCREEN 4G Non Reactive (Non Reactive)
[2018-04-24] MEDS: BLOOD SUGAR DIAGNOSTIC STRIP TEST SCH ×3 (05:29→21:38)
[2018-04-24] MEDS: INSULIN LISPRO 100 UNITS/ML SUBCUT SCH ×3 (05:29→21:00)
[2018-04-24] MEDS: ERYTHROMYCIN BASE 0.5% OPHTH OINT 3.5GM BOTHEYE SCH ×3 (06:46→21:17)
[2018-04-24 07:35] LABS: BASOPHILS % 0.6 % (0.0-2.0); EOSINOPHILS % 1.6 % (0.0-5.0); HEMATOCRIT. 40.3 % (42.0-52.0); HEMOGLOBIN. 13.4 g/dL (14.0-18.0); LYMPHOCYTES % 21.5 % (20.0-50.0); MEAN CORPUSCULAR HEMOGLOBIN 30.6 pg (28.0-32.0); MEAN CORPUSCULAR VOLUME 92.2 fL (80.0-94.0); MONOCYTES % 13.7 % (2.0-8.0); NEUTROPHILS % 62.6 % (40.0-76.0); PLATELET 300 x1000/uL (130-400); RED BLOOD CELL COUNT 4.37 mill/uL (4.7-6.1); RED CELL DISTRIBUTION WIDTH 14.5 % (11.6-14.6)
[2018-04-24 08:38] LABS: CHLORIDE 109 mEq/L (98-107)
[2018-04-24 09:05] LABS: CREATINE KINASE 1264 IU/L (39-308)
[2018-04-24] MEDS: SILVER SULFADIAZINE 1% CREAM 50GM TOP SCH (09:30)
[2018-04-24] MEDS: METOPROLOL TARTRATE 25MG TABLET PO SCH ×2 (09:30→21:16)
[2018-04-24] MEDS ORDERED: POTASSIUM CHLORIDE 20MEQ/PACKET PO NR (09:30)
[2018-04-24] MEDS: CYANOCOBALAMIN 1000MCG/ML VIAL IM SCH (10:37)
[2018-04-24] MEDS: ENOXAPARIN 40MG/0.4ML SYR SUBCUT SCH (10:37)
[2018-04-24] MEDS: NEOMY SULF/BACITRAC ZN/POLY OINT 28GM TOP SCH ×2 (11:18→21:16)
[2018-04-24 12:00] VITALS: BP 107/61
[2018-04-24 16:12] VITALS: BP 112/66
[2018-04-24 20:00] VITALS: BP 115/62
[2018-04-25] VITALS: BP 102/67
[2018-04-25] MEDS: CEFTRIAXONE 1,000 MG in DEXTROSE 5% WATER 50 ML IV SCH (01:23)
[2018-04-25 04:00] VITALS: BP 98/70
[2018-04-25 06:28] LABS: BASOPHILS % 0.3 % (0.0-2.0); EOSINOPHILS % 2.5 % (0.0-5.0); HEMATOCRIT. 37.7 % (42.0-52.0); HEMOGLOBIN. 12.7 g/dL (14.0-18.0); LYMPHOCYTES % 20.3 % (20.0-50.0); MEAN CORPUSCULAR HEMOGLOBIN 30.6 pg (28.0-32.0); MEAN CORPUSCULAR VOLUME 90.9 fL (80.0-94.0); MEAN PLATELET VOLUME 7.9 fl (7.4-10.4); NEUTROPHILS % 63.9 % (40.0-76.0); PLATELET 314 x1000/uL (130-400); RED BLOOD CELL COUNT 4.15 mill/uL (4.7-6.1); RED CELL DISTRIBUTION WIDTH 14.2 % (11.6-14.6)
[2018-04-25] MEDS: BLOOD SUGAR DIAGNOSTIC STRIP TEST SCH ×4 (06:44→20:29)
[2018-04-25] MEDS: INSULIN LISPRO 100 UNITS/ML SUBCUT SCH ×4 (06:44→20:29)
[2018-04-25] MEDS: ERYTHROMYCIN BASE 0.5% OPHTH OINT 3.5GM BOTHEYE SCH ×3 (06:48→21:07)
[2018-04-25 07:23] LABS: CHLORIDE 108 mEq/L (98-107)
[2018-04-25 07:30] LABS: PHOSPHORUS 3.2 mg/dL (2.5-4.9)
[2018-04-25 07:32] LABS: CREATINE KINASE 890 IU/L (39-308)
[2018-04-25 08:00] VITALS: BP 104/62
[2018-04-25 12:00] VITALS: BP 109/65
[2018-04-25 14:04] LABS: CREATINE KINASE 763 IU/L (39-308)
[2018-04-25] MEDS: SODIUM CHLORIDE 0.45% 1,000 ML IV SCH (15:22)
[2018-04-25 16:00] VITALS: BP 116/61
[2018-04-25 20:00] VITALS: BP 108/74
[2018-04-25] MEDS: METOPROLOL TARTRATE 25MG TABLET PO SCH (20:51)
[2018-04-25] MEDS: NEOMY SULF/BACITRAC ZN/POLY OINT 28GM TOP SCH (21:07)
[2018-04-26] MEDS: CEFTRIAXONE 1,000 MG in DEXTROSE 5% WATER 50 ML IV SCH (00:03)
[2018-04-26 04:00] VITALS: BP_SYST 105; BP_SYST 158; BP_DIAS 66; BP_DIAS 79
[2018-04-26] MEDS: ERYTHROMYCIN BASE 0.5% OPHTH OINT 3.5GM BOTHEYE SCH ×3 (05:01→20:58)
[2018-04-26] MEDS: BLOOD SUGAR DIAGNOSTIC STRIP TEST SCH ×4 (06:06→20:55)
[2018-04-26] MEDS: INSULIN LISPRO 100 UNITS/ML SUBCUT SCH ×4 (06:07→20:55)
[2018-04-26 07:20] LABS: BASOPHILS % 0.4 % (0.0-2.0); EOSINOPHILS % 1.6 % (0.0-5.0); HEMATOCRIT. 37.2 % (42.0-52.0); HEMOGLOBIN. 12.8 g/dL (14.0-18.0); MEAN CORPUSCULAR VOLUME 90.3 fL (80.0-94.0); MEAN PLATELET VOLUME 8.2 fl (7.4-10.4); MONOCYTES % 10.7 % (2.0-8.0); NEUTROPHILS % 71.3 % (40.0-76.0); PLATELET 345 x1000/uL (130-400); RED BLOOD CELL COUNT 4.12 mill/uL (4.7-6.1); RED CELL DISTRIBUTION WIDTH 14.1 % (11.6-14.6)
[2018-04-26 07:23] LABS: CHLORIDE 105 mEq/L (98-107)
[2018-04-26 08:00] VITALS: BP 97/68
[2018-04-26] MEDS: METOPROLOL TARTRATE 25MG TABLET PO SCH ×2 (09:00→20:58)
[2018-04-26] MEDS: CYANOCOBALAMIN 1000MCG/ML VIAL IM SCH ×2 (09:40→09:49)
[2018-04-26] MEDS: ENOXAPARIN 40MG/0.4ML SYR SUBCUT SCH ×2 (09:41→09:49)
[2018-04-26] MEDS: SILVER SULFADIAZINE 1% CREAM 50GM TOP SCH (09:45)
[2018-04-26] MEDS: NEOMY SULF/BACITRAC ZN/POLY OINT 28GM TOP SCH ×2 (09:45→20:58)
[2018-04-26 12:00] VITALS: BP 100/72
[2018-04-26] MEDS: SODIUM CHLORIDE 0.45% 1,000 ML IV SCH (15:04)
[2018-04-26 16:00] VITALS: BP 118/74
[2018-04-26 20:26] VITALS: BP 115/67
[2018-04-27] VITALS: BP 96/67
[2018-04-27] MEDS: CEFTRIAXONE 1,000 MG in DEXTROSE 5% WATER 50 ML IV SCH (01:05)
[2018-04-27] MEDS: SODIUM CHLORIDE 0.45% 1,000 ML IV SCH (01:05)
[2018-04-27 04:00] VITALS: BP 128/69
[2018-04-27] MEDS: BLOOD SUGAR DIAGNOSTIC STRIP TEST SCH ×3 (06:12→17:40)
[2018-04-27] MEDS: ERYTHROMYCIN BASE 0.5% OPHTH OINT 3.5GM BOTHEYE SCH ×2 (06:12→17:25)
[2018-04-27] MEDS: INSULIN LISPRO 100 UNITS/ML SUBCUT SCH ×3 (06:12→18:10)
[2018-04-27 08:00] VITALS: BP 99/65
[2018-04-27] MEDS: METOPROLOL TARTRATE 25MG TABLET PO SCH (09:00)
[2018-04-27] MEDS: CYANOCOBALAMIN 1000MCG/ML VIAL IM SCH (09:37)
[2018-04-27] MEDS: NEOMY SULF/BACITRAC ZN/POLY OINT 28GM TOP SCH (09:43)
[2018-04-27] MEDS: ENOXAPARIN 40MG/0.4ML SYR SUBCUT SCH (09:43)
[2018-04-27] MEDS: SILVER SULFADIAZINE 1% CREAM 50GM TOP SCH (09:43)
[2018-04-27 16:00] VITALS: BP 103/71
[2018-04-27 20:00] VITALS: BP 111/69
== END 2018-04-27 21:38 | disposition home or self-care (01) | DRG 720 ==
LOC: ER 19:24 → 7WST 04-21 00:36 → EDBEDREQ 04-21 00:42 → EDBEDREQTM 04-21 00:42 → ENRESERV 04-21 07:28
PROVIDERS: ADMIT Internal Medicine; ATTEND Internal Medicine
PROC: 4A00X4Z Measurement of Central Nervous Electrical Activity, External Approach (ICD-10-PCS; principal; 2018-04-25)
DX: A41.9 Sepsis, unspecified organism (principal); G92 Toxic encephalopathy; N17.9 Acute kidney failure, unspecified; E87.2 Acidosis; E87.0 Hyperosmolality and hypernatremia; M62.82 Rhabdomyolysis; G35 Multiple sclerosis; N39.0 Urinary tract infection, site not specified; D64.9 Anemia, unspecified; R65.20 Severe sepsis without septic shock; H10.89 Other conjunctivitis; N18.9 Chronic kidney disease, unspecified; I12.9 Hypertensive chronic kidney disease with stage 1 through stage 4 chronic kidney disease, or unspecified chronic kidney disease; R32 Unspecified urinary incontinence; E86.9 Volume depletion, unspecified; R79.1 Abnormal coagulation profile; S70.922A Unspecified superficial injury of left thigh, initial encounter; S70.921A Unspecified superficial injury of right thigh, initial encounter; S60.427A Blister (nonthermal) of left little finger, initial encounter; S60.423A Blister (nonthermal) of left middle finger, initial encounter; S60.425A Blister (nonthermal) of left ring finger, initial encounter; S60.322A Blister (nonthermal) of left thumb, initial encounter; S00.212A Abrasion of left eyelid and periocular area, initial encounter; X58.XXXA Exposure to other specified factors, initial encounter; Y93.89 Activity, other specified; Y92.89 Other specified places as the place of occurrence of the external cause; Y99.8 Other external cause status; Z99.3 Dependence on wheelchair; Z79.899 Other long term (current) drug therapy
CPT/HCPCS: 36415; 70551; 71045; 71275; 76770; 80048; 80061; 80076; 82140; 82550; 82607; 82746; 82962; 83036; 83605; 83735; 84100; 84134; 84145; 84439; 84443; 84481; 84484; 85044; 85379; 86705; 86709; 86803; 87077; 87186; 87340; 87389; 92610; 93005; 93970; 96365; 96366; 97163; 97166; 97530; 97535; 99285; J0696; J1650; J3420; J7060; Q9967; A4315

== ENCOUNTER 2019-08-08 15:53 | Inpatient (IN) | payer MEDICAID ==
[~2019-08-08] VITALS: Ht 180.3 cm; Wt 73.9 kg
[2019-08-08] VITALS (7 sets, daily range): BP systolic 96–139; BP diastolic 61–80
[~2019-08-08 15:53] MED LIST changes: -ALBU2.5V13 HHN; -LEVO500T2 MT; +LEVO750T46 MT; -METO25TA6 PO; +METR500T MT
[2019-08-08] MEDS ORDERED: ALBUTEROL (0.083%) 2.5MG/3ML NEB HHN STA (16:03)
[2019-08-08] MEDS ORDERED: IPRATROPIUM BROMIDE (0.02%) 0.5MG/2.5ML NEB HHN STA (16:03)
[2019-08-08] MEDS ORDERED: METHYLPREDNISOLONE SOD SUCC 125 MG/2 ML VIAL IV STA (16:03)
[2019-08-08] MEDS ORDERED: LORAZEPAM 2MG/ML CPJ ONE ×2 (16:05→16:08)
[2019-08-08] MEDS ORDERED: LORAZEPAM 2MG/ML CPJ IV ONE (16:15)
[2019-08-08] MEDS ORDERED: MAGNESIUM 2 G PREMIX 50 ML IV ONE (16:15)
[2019-08-08] MEDS ORDERED: SODIUM CHLORIDE 0.9% 1000ML BAG (SEPSIS BOLUS) IV ONE (16:15)
[2019-08-08] MEDS ORDERED: MIDAZOLAM HCL 100 MG in DEXT 5% WATER 80 ML IV NR (16:15)
[2019-08-08] MEDS ORDERED: MIDAZOLAM HCL 50 MG in DEXTROSE 5% WATER 40 ML IV ONE (16:15)
[2019-08-08 16:28] LABS: BG BASE EXCESS -4.9 mmol/L (-2.0-2.0); BG CARBOXYHEMOGLOBIN 0.5 % (0.5-1.5); BG DEOXYHEMOGLOBIN 0.4 % (0.0-5.0); BG HCO3 ACT 19.4 mmol/L (22.0-26.0); BG METHEMOGLOBIN 0.5 % (0.0-1.5); BG OXYGEN SATURATION 99.6 % (92.0-98.5); BG OXYHEMOGLOBIN 98.6 % (94.0-97.0); BG PCO2 34.5 mmHg (35.0-45.0); BG PH 7.368 (7.350-7.450); BG PO2 281.9 mmHg (75.0-100.0); BG SAMPLE SITE RIGHT BRACHIAL; BG TIDAL VOLUME(mL) 500 mL; BG TOTAL HEMOGLOBIN 17.3 g/dL (12.0-18.0); BG VENT MODE VENT - A/C; BG VENT RATE 16 set
[2019-08-08] MEDS ORDERED: FENTANYL CITRATE/PF 1,000 MCG in SODIUM CHLORIDE 0.9% 80 ML IV PRN ×3 (16:30→20:15)
[2019-08-08 16:40] LABS: BASOPHILS % 0.3 % (0.0-2.0); HEMATOCRIT. 49.2 % (42.0-52.0); HEMOGLOBIN. 16.5 g/dL (14.0-18.0); LYMPHOCYTES % 11.1 % (20.0-50.0); MEAN CORPUSCULAR HEMOGLOBIN 30.7 pg (28.0-32.0); MEAN CORPUSCULAR VOLUME 91.4 fL (80.0-94.0); MEAN PLATELET VOLUME 9.4 fl (7.4-10.4); MONOCYTES % 6.9 % (2.0-8.0); NEUTROPHILS % 81.7 % (40.0-76.0); PLATELET 241 x1000/uL (130-400); RED BLOOD CELL COUNT 5.38 mill/uL (4.7-6.1); RED CELL DISTRIBUTION WIDTH 13.7 % (11.6-14.6)
[2019-08-08 16:45] LABS: CHLORIDE 108 mEq/L (98-107)
[2019-08-08] MEDS ORDERED: LEVOFLOXACIN 500MG PREMIX 100 ML IV ONE (18:30)
[2019-08-08] MEDS ORDERED: MIDAZOLAM HCL 50 MG in DEXTROSE 5% WATER 40 ML IV PRN (20:15)
[2019-08-08] MEDS ORDERED: ACETAMINOPHEN 325MG TABLET PO PRN (21:00)
[2019-08-08] MEDS ORDERED: CEFTRIAXONE 1 G PREMIX 50 ML IV SCH (21:00)
[2019-08-08] MEDS: DEXT 5%/0.45% NACL 1000ML 1,000 ML IV SCH (21:19)
[2019-08-08 22:50] LABS: CLARITY URINE CLOUDY (CLEAR); COLOR URINE YELLOW (YELLOW); KETONES URINE 2+ (NEGATIVE); LEUKOCYTE ESTERASE URINE 2+ (NEGATIVE); NITRITE URINE NEGATIVE (NEGATIVE); OCCULT BLOOD URINE 2+ (NEGATIVE); PROTEIN URINE 1+ (NEGATIVE); SPECIFIC GRAVITY URINE 1.027 (1.005-1.030)
[2019-08-08 23:13] LABS: *AMPHETAMINES SCREEN URINE NEGATIVE (NEGATIVE); *BARBITURATES SCREEN URINE NEGATIVE (NEGATIVE); *BENZODIAZEPINES SCREEN URINE NEGATIVE (NEGATIVE)
[2019-08-08 23:14] LABS: *COCAINE SCREEN URINE NEGATIVE (NEGATIVE); CANNABINOID URINE SCREEN NEGATIVE (NEGATIVE); METHADONE URINE SCREEN NEGATIVE (NEGATIVE); OPIATES URINE SCREEN NEGATIVE (NEGATIVE); PHENCYCLIDINE URINE SCREEN NEGATIVE (NEGATIVE)
[2019-08-09] VITALS (96 sets, daily range): BP systolic 87–122; BP diastolic 45–76
[2019-08-09] MEDS: IPRATROPIUM/ALBUTEROL 0.5-3(2.5)MG/3ML NEB HHN SCH (00:50)
[2019-08-09] MEDS: DEXT 5%/0.45% NACL 1000ML 1,000 ML IV SCH ×2 (01:40→10:48)
[2019-08-09 05:10] LABS: HEMATOCRIT. 43.7 % (42.0-52.0); HEMOGLOBIN. 14.7 g/dL (14.0-18.0); MEAN CORPUSCULAR HEMOGLOBIN 30.5 pg (28.0-32.0); MEAN CORPUSCULAR VOLUME 90.8 fL (80.0-94.0); MEAN PLATELET VOLUME 9.2 fl (7.4-10.4); PLATELET 202 x1000/uL (130-400); RED BLOOD CELL COUNT 4.81 mill/uL (4.7-6.1); RED CELL DISTRIBUTION WIDTH 13.5 % (11.6-14.6)
[2019-08-09 05:15] LABS: CHLORIDE 113 mEq/L (98-107)
[2019-08-09 07:09] LABS: PLATELET ESTIMATE NORMAL
[2019-08-09 07:42] LABS: BG BASE EXCESS -0.9 mmol/L (-2.0-2.0); BG CARBOXYHEMOGLOBIN 0.2 % (0.5-1.5); BG DEOXYHEMOGLOBIN 0.8 % (0.0-5.0); BG FRACTION INSPIRED OXYGEN 60; BG HCO3 ACT 22.1 mmol/L (22.0-26.0); BG METHEMOGLOBIN 0.3 % (0.0-1.5); BG OXYGEN SATURATION 99.2 % (92.0-98.5); BG OXYHEMOGLOBIN 98.7 % (94.0-97.0); BG PCO2 32.3 mmHg (35.0-45.0); BG PH 7.454 (7.350-7.450); BG PO2 172.9 mmHg (75.0-100.0); BG SAMPLE SITE RIGHT RADIAL; BG TIDAL VOLUME(mL) 500 mL; BG VENT MODE VENT - A/C; BG VENT RATE 16 set
[2019-08-09] MEDS: PANTOPRAZOLE SODIUM 40 MG/VIAL IV SCH (08:15)
[2019-08-09] MEDS: AZITHROMYCIN 500 MG TABLET PO SCH (08:15)
[2019-08-09] MEDS ORDERED: IPRATROPIUM/ALBUTEROL 0.5-3(2.5)MG/3ML NEB HHN PRN (13:30)
[2019-08-09] MEDS: ENOXAPARIN 40MG/0.4ML SYR SUBCUT SCH (14:12)
[2019-08-09] MEDS: CEFTRIAXONE 1 G PREMIX 50 ML IV SCH (14:12)
[2019-08-09] MEDS: BUDESONIDE 0.5MG/2ML NEB HHN SCH (20:45)
[2019-08-09] MEDS ORDERED: VANCOMYCIN 1250MG in DEXTROSE 5% WATER 250ML IV SCH (23:00)
[2019-08-10] VITALS (49 sets, daily range): BP systolic 94–150; BP diastolic 39–87
[2019-08-10] MEDS: DEXT 5%/0.45% NACL 1000ML 1,000 ML IV SCH ×2 (03:31→13:15)
[2019-08-10 06:08] LABS: BASOPHILS % 0.4 % (0.0-2.0); EOSINOPHILS % 0.3 % (0.0-5.0); HEMATOCRIT. 39.1 % (42.0-52.0); HEMOGLOBIN. 13.5 g/dL (14.0-18.0); LYMPHOCYTES % 12.6 % (20.0-50.0); MEAN CORPUSCULAR HEMOGLOBIN 31.2 pg (28.0-32.0); MEAN CORPUSCULAR VOLUME 90.6 fL (80.0-94.0); MEAN PLATELET VOLUME 8.2 fl (7.4-10.4); MONOCYTES % 7.5 % (2.0-8.0); NEUTROPHILS % 79.2 % (40.0-76.0); PLATELET 215 x1000/uL (130-400); RED BLOOD CELL COUNT 4.32 mill/uL (4.7-6.1); RED CELL DISTRIBUTION WIDTH 14.1 % (11.6-14.6)
[2019-08-10 06:09] LABS: CHLORIDE 111 mEq/L (98-107)
[2019-08-10] MEDS ORDERED: VANCOMYCIN 1 G PREMIX 200 ML IV SCH (07:00)
[2019-08-10] MEDS ORDERED: POTASSIUM CHLORIDE 20MEQ/PACKET PO SCH (08:00)
[2019-08-10] MEDS: PANTOPRAZOLE SODIUM 40 MG/VIAL IV SCH (08:20)
[2019-08-10] MEDS: AZITHROMYCIN 500 MG TABLET PO SCH (08:21)
[2019-08-10] MEDS: ENOXAPARIN 40MG/0.4ML SYR SUBCUT SCH (08:21)
[2019-08-10 08:30] LABS: BG CARBOXYHEMOGLOBIN 0.3 % (0.5-1.5); BG DEOXYHEMOGLOBIN 1.2 % (0.0-5.0); BG FRACTION INSPIRED OXYGEN 40; BG HCO3 ACT 23.7 mmol/L (22.0-26.0); BG METHEMOGLOBIN 0.1 % (0.0-1.5); BG OXYGEN SATURATION 98.8 % (92.0-98.5); BG OXYHEMOGLOBIN 98.4 % (94.0-97.0); BG PCO2 32.2 mmHg (35.0-45.0); BG PH 7.485 (7.350-7.450); BG PO2 155.2 mmHg (75.0-100.0); BG PRESSURE SUPPORT 12; BG SAMPLE SITE RIGHT RADIAL; BG TIDAL VOLUME(mL) 500 mL; BG TOTAL HEMOGLOBIN 13.4 g/dL (12.0-18.0); BG VENT MODE VENT - SIMV; BG VENT RATE 10 set
[2019-08-10] MEDS: IPRATROPIUM/ALBUTEROL 0.5-3(2.5)MG/3ML NEB HHN SCH ×2 (08:44→14:29)
[2019-08-10] MEDS: BUDESONIDE 0.5MG/2ML NEB HHN SCH (08:45)
[2019-08-10 11:29] LABS: BG BASE EXCESS -0.7 mmol/L (-2.0-2.0); BG CARBOXYHEMOGLOBIN 0.3 % (0.5-1.5); BG DEOXYHEMOGLOBIN 1.3 % (0.0-5.0); BG FRACTION INSPIRED OXYGEN 40; BG HCO3 ACT 22.7 mmol/L (22.0-26.0); BG METHEMOGLOBIN 0.3 % (0.0-1.5); BG OXYGEN SATURATION 98.7 % (92.0-98.5); BG OXYHEMOGLOBIN 98.1 % (94.0-97.0); BG PCO2 33.6 mmHg (35.0-45.0); BG PH 7.447 (7.350-7.450); BG PRESSURE SUPPORT 10; BG SAMPLE SITE RIGHT RADIAL; BG VENT MODE VENT - CPAP
[2019-08-10] MEDS ORDERED: SODIUM CHLORIDE 0.45% 500 ML IV ONE (11:30)
[2019-08-10] MEDS ORDERED: SODIUM CHLORIDE 0.45% 500 ML IV SCH (12:45)
[2019-08-10] MEDS: CEFTRIAXONE 1 G PREMIX 50 ML IV SCH (13:45)
[2019-08-10] MEDS: VANCOMYCIN 1250MG in DEXTROSE 5% WATER 250ML IV SCH ×2 (14:40→21:18)
[2019-08-10 17:33] LABS: BG BASE EXCESS 1.1 mmol/L (-2.0-2.0); BG CARBOXYHEMOGLOBIN 0.3 % (0.5-1.5); BG DEOXYHEMOGLOBIN 2.5 % (0.0-5.0); BG FRACTION INSPIRED OXYGEN 35; BG HCO3 ACT 25.3 mmol/L (22.0-26.0); BG METHEMOGLOBIN 0.3 % (0.0-1.5); BG OXYGEN SATURATION 97.5 % (92.0-98.5); BG OXYHEMOGLOBIN 96.9 % (94.0-97.0); BG PCO2 38.6 mmHg (35.0-45.0); BG PH 7.434 (7.350-7.450); BG PO2 95.3 mmHg (75.0-100.0); BG SAMPLE SITE RIGHT RADIAL; BG TOTAL HEMOGLOBIN 14.3 g/dL (12.0-18.0); BG VENT MODE MASK - AEROSOL
[2019-08-11] VITALS (16 sets, daily range): BP systolic 92–121; BP diastolic 44–85
[2019-08-11] MEDS: IPRATROPIUM/ALBUTEROL 0.5-3(2.5)MG/3ML NEB HHN SCH ×4 (01:10→20:12)
[2019-08-11] MEDS: BUDESONIDE 0.5MG/2ML NEB HHN SCH ×3 (01:10→20:08)
[2019-08-11] MEDS: DEXT 5%/0.45% NACL 1000ML 1,000 ML IV SCH ×2 (02:10→18:06)
[2019-08-11] MEDS: VANCOMYCIN 1250MG in DEXTROSE 5% WATER 250ML IV SCH (05:41)
[2019-08-11 05:45] LABS: BASOPHILS % 0.3 % (0.0-2.0); EOSINOPHILS % 1.2 % (0.0-5.0); HEMATOCRIT. 40.6 % (42.0-52.0); HEMOGLOBIN. 13.8 g/dL (14.0-18.0); LYMPHOCYTES % 17.1 % (20.0-50.0); MEAN CORPUSCULAR HEMOGLOBIN 31.1 pg (28.0-32.0); MEAN CORPUSCULAR VOLUME 91.3 fL (80.0-94.0); MEAN PLATELET VOLUME 8.5 fl (7.4-10.4); MONOCYTES % 7.3 % (2.0-8.0); NEUTROPHILS % 74.1 % (40.0-76.0); PLATELET 231 x1000/uL (130-400); RED BLOOD CELL COUNT 4.45 mill/uL (4.7-6.1); RED CELL DISTRIBUTION WIDTH 13.9 % (11.6-14.6)
[2019-08-11 05:59] LABS: CHLORIDE 107 mEq/L (98-107)
[2019-08-11 06:07] LABS: VANCOMYCIN TROUGH 19.8 ug/mL (5.0-10.0)
[2019-08-11] MEDS ORDERED: POTASSIUM CHLORIDE 20MEQ/PACKET PO SCH (07:00)
[2019-08-11] MEDS: ENOXAPARIN 40MG/0.4ML SYR SUBCUT SCH (08:11)
[2019-08-11] MEDS: PANTOPRAZOLE SODIUM 40 MG/VIAL IV SCH (08:12)
[2019-08-11] MEDS: AZITHROMYCIN 500 MG TABLET PO SCH (08:13)
[2019-08-11] MEDS: CEFTRIAXONE 1 G PREMIX 50 ML IV SCH (14:24)
[2019-08-11] MEDS: VANCOMYCIN 1 G PREMIX 200 ML IV SCH (18:05)
[2019-08-12] VITALS (9 sets, daily range): BP systolic 93–108; BP diastolic 55–67
[2019-08-12] MEDS: VANCOMYCIN 1 G PREMIX 200 ML IV SCH ×2 (02:02→09:14)
[2019-08-12] MEDS: IPRATROPIUM/ALBUTEROL 0.5-3(2.5)MG/3ML NEB HHN SCH ×3 (02:13→14:03)
[2019-08-12] MEDS: DEXT 5%/0.45% NACL 1000ML 1,000 ML IV SCH (05:27)
[2019-08-12 06:06] LABS: BASOPHILS % 0.7 % (0.0-2.0); EOSINOPHILS % 3.3 % (0.0-5.0); HEMATOCRIT. 37.6 % (42.0-52.0); HEMOGLOBIN. 13.1 g/dL (14.0-18.0); LYMPHOCYTES % 22.4 % (20.0-50.0); MEAN CORPUSCULAR HEMOGLOBIN 31.2 pg (28.0-32.0); MEAN CORPUSCULAR VOLUME 89.9 fL (80.0-94.0); MONOCYTES % 8.6 % (2.0-8.0); PLATELET 273 x1000/uL (130-400); RED BLOOD CELL COUNT 4.19 mill/uL (4.7-6.1); RED CELL DISTRIBUTION WIDTH 13.6 % (11.6-14.6)
[2019-08-12 07:13] LABS: CHLORIDE 107 mEq/L (98-107)
[2019-08-12] MEDS ORDERED: LIDOCAINE HCL/EPINEPHRINE 1%-EPI 1:100,000 20 ML VIAL INFIL NR (09:00)
[2019-08-12] MEDS: PANTOPRAZOLE SODIUM 40 MG/VIAL IV SCH (09:14)
[2019-08-12] MEDS: AZITHROMYCIN 500 MG TABLET PO SCH (09:14)
[2019-08-12] MEDS: ENOXAPARIN 40MG/0.4ML SYR SUBCUT SCH (09:14)
[2019-08-12] MEDS: BUDESONIDE 0.5MG/2ML NEB HHN SCH (10:28)
[2019-08-12] MEDS ORDERED: ALBU18HF2 IH (12:02)
[2019-08-12] MEDS ORDERED: LEVO750T46 MT (12:02)
[2019-08-12] MEDS ORDERED: POTASSIUM CHLORIDE 20MEQ TABLET SR PO NR (12:15)
[2019-08-12] MEDS: CEFTRIAXONE 1 G PREMIX 50 ML IV SCH (13:31)
[2019-08-12] MEDS ORDERED: ACETYLCYSTEINE 100MG/ML 10% VIAL 4ML INH SCH (21:00)
[2019-08-13] MEDS ORDERED: FAMOTIDINE 20MG/2ML VIAL IV SCH (09:00)
== END 2019-08-12 15:00 | disposition home health service (06) | DRG 720 ==
LOC: ER 15:53 → EDBEDREQ 19:10 → EDBEDREQTM 19:10 → ENRESERV 21:13 → MICUSO 23:02 → CVICU 08-10 02:45 → 3WST 08-11 17:13
PROVIDERS: ADMIT Internal Medicine; ATTEND Internal Medicine
PROC: 5A1945Z Respiratory Ventilation, 24-96 Consecutive Hours (ICD-10-PCS; principal; 2019-08-08)
PROC: 0BH17EZ Insertion of Endotracheal Airway into Trachea, Via Natural or Artificial Opening (ICD-10-PCS; 2019-08-08)
PROC: 0HDRXZZ Extraction of Toe Nail, External Approach (ICD-10-PCS; 2019-08-12)
PROC: 0HBRXZZ Excision of Toe Nail, External Approach (ICD-10-PCS; 2019-08-12)
PROC: 0HBRXZZ Excision of Toe Nail, External Approach (ICD-10-PCS; 2019-08-12)
PROC: 0HBRXZZ Excision of Toe Nail, External Approach (ICD-10-PCS; 2019-08-12)
PROC: 0HBRXZZ Excision of Toe Nail, External Approach (ICD-10-PCS; 2019-08-12)
PROC: 0HBRXZZ Excision of Toe Nail, External Approach (ICD-10-PCS; 2019-08-12)
PROC: 0HBRXZZ Excision of Toe Nail, External Approach (ICD-10-PCS; 2019-08-12)
PROC: 0HBRXZZ Excision of Toe Nail, External Approach (ICD-10-PCS; 2019-08-12)
PROC: 0HBRXZZ Excision of Toe Nail, External Approach (ICD-10-PCS; 2019-08-12)
PROC: 0HBRXZZ Excision of Toe Nail, External Approach (ICD-10-PCS; 2019-08-12)
PROC: 0HBRXZZ Excision of Toe Nail, External Approach (ICD-10-PCS; 2019-08-12)
DX: A41.9 Sepsis, unspecified organism (principal); J96.01 Acute respiratory failure with hypoxia; E87.2 Acidosis; J18.9 Pneumonia, unspecified organism; D68.59 Other primary thrombophilia; E87.8 Other disorders of electrolyte and fluid balance, not elsewhere classified; G35 Multiple sclerosis; J45.41 Moderate persistent asthma with (acute) exacerbation; I10 Essential (primary) hypertension; M54.10 Radiculopathy, site unspecified; J98.11 Atelectasis; L60.2 Onychogryphosis; Z20.828 Contact with and (suspected) exposure to other viral communicable diseases; L85.3 Xerosis cutis; N39.0 Urinary tract infection, site not specified; L60.0 Ingrowing nail; Z79.899 Other long term (current) drug therapy; Z99.3 Dependence on wheelchair; Z78.1 Physical restraint status
CPT/HCPCS: 36415; 36600; 71045; 80048; 80053; 80202; 80305; 81003; 82375; 82805; 83036; 83605; 83880; 84145; 84484; 85025; 92610; 93005; 93970; 94003; 94640; 97162; 99291; C9113; J0696; J1650; J1956; J2060; J2250; J2930; J3010; J3370; J3475; J3490; J7030; J7050; J7060; J7626; U0003-CS